=== PATIENT | male | born 1940 | race American Indian/Alaskan Native ===

== ENCOUNTER 2018-02-22 00:46 | Emergency (ER) | payer MEDICARE ==
[2018-02-22 00:57] VITALS: RESP 18; TEMP 98.1
[2018-02-22 01:41] LABS: BASO # 0.01 K/mm3 (0.0-2.0); BASO % 0.2 % (0.0-3.0); EOS # 0.1 (0.0-0.7); EOS % 2.9 % (1.5-5.0); GRAN # 2.32 (1.4-6.5); GRAN % 55.8 % (50.0-68.0); HEMOGLOBIN 13.7 g/dL (14.0-18.0); LYMPH # 1.4 (1.2-3.4); LYMPH % 33.4 % (22.0-35.0); MEAN CELL VOLUME 85.6 fl (80.0-105.0); MEAN CORPUSCULAR HEMOGLOBIN 30.4 pg (25.0-35.0); MEAN CORPUSCULAR HGB CONC 35.6 g/dl (31.0-37.0); MEAN PLATELET VOLUME 10.5 fl (7.0-11.0); MONO # 0.3 (0.1-0.6); MONO % 7.7 % (1.0-6.0); RBC 4.5 10^6/uL (3.5-6.1); RED CELL DISTRIBUTION WIDTH 12.3 % (11.5-14.5); WHITE BLOOD COUNT 4.2 10^3/ul (4.5-11.0)
[2018-02-22 01:42] LABS: ALB/GLOB RATIO 1.3 (1.1-1.8); ALBUMIN 4.3 g/dL (3.0-4.8); ALT/SGPT 35 U/L (7-56); AST/SGOT 32 U/L (17-59); BLOOD UREA NITROGEN 13 mg/dL (7-21); CALCIUM 9.2 mg/dL (8.4-10.5); GFR AFRICAN-AMERICAN > 60; GFR NON-AFRICAN AMERICAN > 60
[2018-02-22 01:53] LABS: B-TYPE NATRIURETIC PEPTIDE 91.3 pg/mL (0-450); TROPONIN I 0.02 ng/mL
[2018-02-22] MEDS ORDERED: Iodixanol 320 MG/ML 100 ML BOTTLE IV ONE (02:03)
[2018-02-22] MEDS ORDERED: Sodium Chloride 0.9% 1,000 ML IV STA (04:11)
--- NOTE | 2018-02-22 04:40 | ED PDOC ---
Arrival/HPI - General Chief Complaint: Shortness Of Breath Time Seen by Provider: 02/22/18 01:00 Historian: Patient, Family (Son) - History of Present Illness Narrative History of Present Illness (Text): 02/22/18 04:30 This is a 78 yo M with only reported PMH of enlarged prostate (medically managed ) who presents with complaint of persistent shortness of breath. Reports began after 9-10 hour flight [place] from [facility] (returned on 02/15/18, lived there for 1 yr, [place] resident otherwise). No exacerbations, and not inhibited from daily activities at home, but noted today while walking at family member's graduation (after driving several hours to arrive) that he was becoming short of breath enough to need to stop and catch his breath for several minutes. Reports baseline at home is walking 3-4 blocks without shortness of breath. Admits to mild intermittent cough, sparely productive of sputum, hasn't examined it to determine color, but reports minimal quantity and no blood. Reports intermittent sense of faint fever, never measure. Son at bedside reports pt reported sensation of body aches 1 day after flight, lasting for several days, resolving approx 2 days prior to presentation, which patient confirms. Denies chest pain, pain with respiration, sense of foreign body in airway or obstruction, nausea, emesis, dysuria, hematuria, constipation, diarrhea, lower extremity swelling, hx of DVT/PE, hx of coagulopathy, trauma to leg, or focal weakness. Denies any recent animal or insect bites in last 4 weeks. Denies hx of asthma. Does admit to audible wheezing, particularly when lying down at night. All other ROS in 12-system review negative. PMH: as above PSH: denies Soc Hx: denies tobacco, alcohol, illicits Fam Hx: denies fam hx of DVT/PE, coagulopathy, asthma, or COPD PMD: Dr. Liu (followed another PMD while in [facility]) Urology: Dr. Butler Time/Duration: Other (6 days) Symptom Onset: Sudden Symptom Course: Unchanged Associated Symptoms (Text): 02/22/18 05:46 Worse with exertion today in hot weather, otherwise present constantly Past Medical History - Provider Review Nursing Documentation Reviewed: Yes - Travel History If Yes, travel location?: [place] - Infectious Disease Hx of Infectious Diseases: None - Cardiac Hx Cardiac Disorders: No - Pulmonary Hx Respiratory Disorders: No - Neurological Hx Neurological Disorder: No - HEENT Hx HEENT Disorder: No - Renal Hx Renal Disorder: No - Endocrine/Metabolic Hx Endocrine Disorders: No - Hematological/Oncological Hx Blood Disorders: No - Integumentary Hx Dermatological Disorder: No - Musculoskeletal/Rheumatological Hx Musculoskeletal Disorders: Yes Hx Gout: Yes - Gastrointestinal Hx Gastrointestinal Disorders: No - Genitourinary/Gynecological Hx Genitourinary Disorders: No - Psychiatric Hx Psychophysiologic Disorder: No Hx Substance Use: No Family/Social History - Physician Review Nursing Documentation Reviewed: Yes Family/Social History: No Known Family HX Smoking Status: Never Smoked Hx Alcohol Use: Yes Frequency of alcohol use: Socially Hx Substance Use: No Allergies/Home Meds Allergies/Adverse Reactions: Allergies No Known Allergies Allergy (Verified 02/22/18 00:55) Review of Systems - Physician Review All systems were reviewed & negative as marked: Yes (as per HPI) - Review of Systems Constitutional: Fevers (intermittent, subjective, never measured, none in last 24 hours). absent: Fatigue, Weight Change Eyes: Normal. absent: Vision Changes ENT: Normal. absent: Sore Throat, Rhinorrhea, Epistaxis, Sinus Congestion Respiratory: SOB, Cough, Sputum (sparse sputum), Wheezing (audible to self, primarily when lying down). absent: Normal Cardiovascular: Normal. absent: Chest Pain, Palpitations, Orthopnea, Syncope Gastrointestinal: Normal. absent: Abdominal Pain, Nausea, Vomiting Genitourinary Male: Normal. absent: Dysuria Neurological: Normal. absent: Headache, Dizziness, Focal Weakness Physical Exam Vital Signs Reviewed: Yes Vital Signs Temp Pulse Resp BP Pulse Ox 02/22/18 01:00 18 97 02/22/18 00:56 98.1 F 65 18 136/72 97 Temperature: Afebrile Blood Pressure: Normal Pulse: Regular Respiratory Rate: Normal Appearance: Positive for: Well-Appearing, Non-Toxic, Comfortable Pain Distress: None Mental Status: Positive for: Alert and Oriented X 3 - Systems Exam Head: Present: Atraumatic, Normocephalic. No: Contusion, Ecchymosis, Abrasion, Laceration Pupils: No: Pinpoint Extroacular Muscles: Present: EOMI. No: Gaze Palsy, Entrapment Conjunctiva: Present: Normal. No: Injected, Icteric Mouth: Present: Moist Mucous Membranes, Normal Lips, Normal Tounge, Normal Teeth. No: Dry, Drooling Pharnyx: Present: Normal. No: ERYTHEMA, EXUDATE Nose (External): Present: Atraumatic. No: Abrasion, Laceration Nose (Internal): Present: No Active Bleeding. No: Epistaxis Neck: Present: Normal Range of Motion, Trachea Midline. No: MIDLINE TENDERNESS , JVD Respiratory/Chest: Present: Clear to Auscultation, Good Air Exchange, Wheezes ( faintly auscultory wheezes heard on neck auscultation ONLY, none appreciable on lung field auscultation). No: Respiratory Distress, Accessory Muscle Use, Decreased Breath Sounds, Rales, Rhonchi, Tachypneic, Tender to Palpation Cardiovascular: Present: Regular Rate and Rhythm, Normal S1, S2, Peripheal Pulses Present (+2 radials bilaterally). No: Murmurs, Irregular Rhythm, Tachycardic, Bradycardic Abdomen: Present: Normal Bowel Sounds. No: Tenderness, Distention Back: Present: Normal Inspection Upper Extremity: Present: Normal Inspection, Normal ROM, NORMAL PULSES. No: Cyanosis, Edema, Tenderness, Swelling, Erythema, Deformity Lower Extremity: Present: Normal Inspection, NORMAL PULSES, Normal ROM. No: Edema, CALF TENDERNESS, Cyanosis, Tenderness, Swelling, Erythema, Deformity Neurological: Present: GCS=15, Speech Normal, Motor Func Grossly Intact, Normal Sensory Function, Gait Normal Skin: Present: Warm, Dry, Normal Color. No: Rashes, Erythematous Lymphatic: No: Cervical Adenopathy Psychiatric: Present: Alert, Oriented x 3, Normal Insight, Normal Concentration , Normal Affect, Normal Mood Medical Decision Making ED Course and Treatment: 02/21/18 22:43 Ddx: viral infectious from plane travel with recycled air vs PNA, r/o PE -due to prolonged air travel, need to rule out PE, will obtain labs to assess for acute infectious process and to assess renal function to determine if CTA or V/Q scan will be obtained -CBC, CMP, BNP, Trop ordered, f/u -CXR ordered to rule out pneumonia -Satting > 92% consistently on 2L NC, continue supplementation 02/21/18 23:23 -Trop negative, BNP wnl, no leukocytosis on CBC, and no apparent infiltrate on CXR, so less likely PNA -Cr wnl on labs, so CTA to rule out PE ordered 02/22/18 04:37 -CTA official read negative for PE, but 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 Given referral for CT Surgeon to follow up with, and given disc with copy of CT scan so can be given to following physicians for review. Instructed to call today to make appointment with PMD (Dr. Liu in [place]), and to make appointment with CT surgeon as soon as possible. Pt and soon at bedside expressed understanding and agreement. Also gave prescription for Ventolin inhaler, to be used as needed, and explained proper inhaler technique to patient, who expressed understanding. Patient to be discharged to home. Seen, reviewed, and discussed with attending, Dr. Keys Reassessment Condition: Re-examined, Unchanged - Lab Interpretations Lab Results: 02/22/18 01:05 02/22/18 01:05 Lab Results 02/22/18 01:05: WBC 4.2 L, RBC 4.50, Hgb 13.7 L, Hct 38.5 L, MCV 85.6, MCH 30.4 , MCHC 35.6, RDW 12.3, Plt Count 108 L, MPV 10.5, Gran % 55.8, Lymph % (Auto) 33.4, [place] % (Auto) 7.7 H, Eos % (Auto) 2.9, Baso % (Auto) 0.2, Gran # 2.32, Lymph # (Auto) 1.4, [place] # (Auto) 0.3, Eos # (Auto) 0.1, Baso # (Auto) 0.01 02/22/18 01:05: Sodium 142, Potassium 3.8, Chloride 101, Carbon Dioxide 29, Anion Gap 15, BUN 13, Creatinine 0.9, Est GFR ( Amer) > 60, Est GFR (Non- Af Amer) > 60, Random Glucose 203 H, Calcium 9.2, Phosphorus 2.5, Magnesium 1.9 , Total Bilirubin 1.6 H, AST 32, ALT 35, Alkaline Phosphatase 54, Troponin I 0.02, NT-Pro-B Natriuret Pep 91.3, Total Protein 7.7, Albumin 4.3, Globulin 3.4 , Albumin/Globulin Ratio 1.3 - RAD Interpretation Radiology Orders: 02/22/18 01:22 CXR [CHEST PORTABLE] [RAD] Stat 02/22/18 01:55 ANGIO CHEST PE PROTOCOL [CT] Stat - Medication Orders Current Medication Orders: Sodium Chloride (Sodium Chloride 0.9%) 1,000 mls @ 500 mls/hr IV .Q2H STA Stop: 02/22/18 06:10 Last Admin: 02/22/18 04:17 Dose: 500 mls/hr eMAR Start Stop Document 02/22/18 04:17 AD (Rec: 02/22/18 04:18 AD [id number]) Intravenous Solution Start Date 02/22/18 Start Time 04:17 Disposition/Present on Arrival - Present on Arrival Any Indicators Present on Arrival: No History of DVT/PE: No History of Uncontrolled Diabetes: No Urinary Catheter: No History of Decub. Ulcer: No History Surgical Site Infection Following: None - Disposition Have Diagnosis and Disposition been Completed?: Yes Diagnosis: Shortness of breath Disposition: HOME/ ROUTINE Disposition Time: 05:20 Patient Plan: Discharge Patient Problems: Current Active Problems Problem Status Onset Shortness of breath Acute Condition: FAIR Discharge Instructions (ExitCare): Shortness of Breath (Dyspnea) (DC) Additional Instructions: ISSAC CASTILLO, thank you for letting us take care of you today. Your providers were Bill Keys MD and Andrew Manzo DO, and you were treated for shortness of breath. The emergency medical care you received today was directed at your acute symptoms. Please fill your prescription for Ventolin (an inhaler) and use as instructed. It may take several days for your symptoms to resolve. Return to the Emergency Department if your symptoms worsen, do not improve, or if you have any other problems. Please establish yourself with a Primary Medical Doctor and follow up within 1 week of discharge; if you do not have a Primary Doctor you can follow up at the [facility] (on the ground floor of the hospital, a referral has been provided). Bring any paperwork you were given at discharge with you along with any medications you are taking to your follow up visit. Our treatment cannot replace ongoing medical care by a primary care provider outside of the emergency department. Thank you for allowing the [facility] team to be part of your care today. If you had an X-Ray or CT scan: A Radiologist will review the ED reading if any change in treatment is needed we will contact you. If you had a blood, urine, or wound culture: It will take several days for the results, if any change in treatment is needed we will contact you. If you had an STI test: It will take 48 hours for the results. Please call after 1 week if you have not heard back. Prescriptions: Albuterol HFA [Ventolin HFA 90 mcg/actuation (8 g)] 2 puff IH Q4H PRN #2 puff PRN Reason: Shortness Of Breath/Wheezing Referrals: [facility] [Outside] - Follow up with primary Drew Buckley MD [Staff Provider] - Follow up with primary Issac Liu MD [Family Provider] - Follow up with primary Forms: [facility] (Indonesian)
[2018-02-22 05:49] VITALS: BP 135/87; PULSE 62; O2SAT 99
--- NOTE | 2018-02-22 08:29 | RAD ---
HISTORY: short of breath COMPARISON: No prior. FINDINGS: LUNGS: No active pulmonary disease. PLEURA: No significant pleural effusion identified, no pneumothorax apparent. CARDIOVASCULAR: Normal. OSSEOUS STRUCTURES: No significant abnormalities. VISUALIZED UPPER ABDOMEN: Normal. OTHER FINDINGS: None. IMPRESSION: No active disease.
--- NOTE | 2018-02-22 08:42 | CARD ---
APPROVED REPORT EKG Measurement Heart [id number] <Conclusion> Normal sinus rhythm Possible Left atrial enlargement Left ventricular hypertrophy Nonspecific T wave abnormality Abnormal ECG
--- NOTE | 2018-02-22 10:54 | CT ---
PROCEDURE: CT Chest with contrast (Pulmonary Angiogram) HISTORY: short of breath, s/p 9 hour flight COMPARISON: None available. TECHNIQUE: Axial computed tomography images were obtained of the chest in the pulmonary arterial phase of enhancement. Coronal and sagittal reformatted images were created and reviewed. Intravenous contrast dose: 96 cc of Visipaque Radiation dose: Total exam DLP = 382 mGy-cm. This CT exam was performed using one or more of the following dose reduction techniques: Automated exposure control, adjustment of the mA and/or kV according to patient size, and/or use of iterative reconstruction technique. FINDINGS: PULMONARY ARTERIES: Unremarkable. No pulmonary embolism. AORTA: No acute findings. No thoracic aortic aneurysm. LUNGS: Unremarkable. No nodule, mass or pulmonary consolidation. PLEURAL SPACES: Unremarkable. No effusion or pneuomothorax. HEART: Unremarkable. No cardiomegaly. No significant pericardial effusion. LYMPH NODES: No lymphadenopathy. BONES, CHEST WALL: Unremarkable. No fracture or destructive lesion OTHER FINDINGS: The report concurs with the preliminary [facility] report IMPRESSION: Unremarkable CT pulmonary angiogram. No pulmonary embolus.
== END 2018-02-22 05:45 | disposition home or self-care (01) ==
LOC: ED 00:46
DX: R06.02 Shortness of breath (principal)
CPT/HCPCS: 71045; 71275; 80053; 83735; 83880; 84100; 84484; 85025; 93005; 99284; J7030; Q9967